=== PATIENT | male | born 1950 | race Caucasian/White ===

== ENCOUNTER 2021-04-18 13:58 | Emergency (ER) | payer OTHER ==
[2021-04-18 15:04] LABS: HEMOGLOBIN 13.7 gm/dl (14.0-17.5); RED BLOOD COUNT 4.1 M/UL (4.20-5.50); WHITE BLOOD COUNT 8.6 K/UL (4.5-11.0)
[2021-04-18] MEDS ORDERED: DOXYCYCLINE HY100 MG PO (19:26)
== END 2021-04-18 19:38 | disposition home or self-care (01) ==
LOC: ER1 13:58
PROVIDERS: Physician Assistant Medical
DX: J18.9 Pneumonia, unspecified organism (principal); I10 Essential (primary) hypertension; F17.290 Nicotine dependence, other tobacco product, uncomplicated
CPT/HCPCS: 71045; 80053; 81001; 82550; 82553; 83605; 83874; 84484; 85025; 99283